=== PATIENT | female | born 1995 | race African-American/Black ===

== ENCOUNTER 2024-08-23 09:42 | Emergency (ER) | payer OTHER ==
[~2024-08-23] VITALS: Ht 167.6 cm; Wt 61.2 kg
[2024-08-23 09:44] VITALS: TEMP 37; O2SAT 100
[2024-08-23 11:16] VITALS: BP 122/72; PULSE 72; RESP 18; O2SAT 99
[2024-08-23] MEDS: BUPRENORPHINE 8MG SL TABLET SL ONE (11:18)
[2024-08-23] MEDS ORDERED: BUPRENORPHINE 8MG SL TABLET SL ONE (12:15)
== END 2024-08-23 12:51 | disposition left against medical advice (07) ==
LOC: ER 09:42
DX: F15.23 Other stimulant dependence with withdrawal (principal)
CPT/HCPCS: 81025; 99283; Z7610